=== PATIENT | female | born 1995 | race Caucasian/White ===

== ENCOUNTER 2019-09-04 10:30 | Emergency (ER) | payer OTHER ==
[~2019-09-04] VITALS: Ht 170.2 cm; Wt 86.4 kg
[2019-09-04] MEDS ORDERED: ACET-2744 PO (10:41)
[2019-09-04] MEDS ORDERED: IBUP-2071 PO (10:41)
[2019-09-04] MEDS ORDERED: KETOROLAC TROMETHAMINE 60 MG/2 ML VIAL IM ONE (11:45)
[2019-09-04 12:40] VITALS: BP 122/86
== END 2019-09-04 12:44 | disposition home or self-care (01) ==
LOC: EMS 10:32
DX: S29.011A Strain of muscle and tendon of front wall of thorax, initial encounter (principal); X50.9XXA Other and unspecified overexertion or strenuous movements or postures, initial encounter; Y93.89 Activity, other specified; Y92.89 Other specified places as the place of occurrence of the external cause; Y99.8 Other external cause status
CPT/HCPCS: 71046; 96372; 99283; J1885